=== PATIENT | female | born 2000 | race Caucasian/White ===

== ENCOUNTER 2023-04-19 02:40 | Emergency (ER) | payer OTHER ==
[~2023-04-19] VITALS: Ht 154.9 cm; Wt 67.3 kg
[2023-04-19 02:51] VITALS: TEMP 97.4
[2023-04-19] MEDS ORDERED: diphenhydrAMINE 50 MG/ML 1 ML VIAL IV ONE (03:15)
[2023-04-19] MEDS ORDERED: NS 1,000 ML IV ONE (03:15)
[2023-04-19] MEDS ORDERED: Ketorolac 15 MG/ML VIAL IV ONE (03:15)
[2023-04-19] MEDS ORDERED: dexAMETHasone 10 MG/ML VIAL IV ONE (04:15)
[2023-04-19 04:30] VITALS: BP 125/89; PULSE 72
== END 2023-04-19 04:55 | disposition home or self-care (01) ==
LOC: COL.ER 02:40
DX: G43.909 Migraine, unspecified, not intractable, without status migrainosus (principal); Z79.3 Long term (current) use of hormonal contraceptives
CPT/HCPCS: J1100; J1200; J1885; J2765; J7030